=== PATIENT | female | born 2000 | race Caucasian/White ===

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

== ENCOUNTER → 2021-07-22 | Outpatient (CLI) | payer BC | LOC: M LABSMTC 12:03 | PROVIDERS: ATTEND Pediatrics | DX: Z20.822 Contact with and (suspected) exposure to COVID-19 (principal) | CPT/HCPCS: C9803; U0003 ==